=== PATIENT | female | born 1965 | race Two or more races ===

== ENCOUNTER → 2025-10-23 | Outpatient (CLI) | payer MEDICAID, SELFPAY ==
[2025-10-22 14:45] LABS: Basophils # (Auto) 0.1 Thou/mm3 (0.0-0.2); Basophils % (Auto) 0 % (0-2.5); Eosinophils # (Auto) 0.2 Thou/mm3 (0.0-0.5); Eosinophils % (Auto) 2 % (0-10); Hematocrit 41.2 % (36.0-46.0); Hemoglobin 13.1 g/dL (12.0-16.0); Immature Granulocytes Auto 0.04 Thou/mm3 (0.00-0.00); Lymphocytes # (Auto) 3.6 Thou/mm3 (1.0-4.8); Lymphocytes % (Auto) 31 % (10-50); Mean Corpuscular HGB Conc 31.8 g/dl (31.0-37.0); Mean Corpuscular Hemoglobin 29.8 pg (25.0-35.0); Mean Corpuscular Volume 94 fL (80-100); Monocytes # (Auto) 0.8 Thou/mm3 (0.0-0.8); Monocytes % (Auto) 7 % (0-12); Neutrophils # (Auto) 6.9 Thou/mm3 (1.8-7.7); Neutrophils % (Auto) 60 % (37-80); Nucleated Red Blood Cell # 0.00 Thou/mm3 (0.00-0.00); Nucleated Red Blood Cell % 0 /100 WBC (0); Platelet Count 287 Thou/mm3 (140-440); RDW Standard Deviation 49.3 fL (36.4-46.3); Red Blood Count 4.39 Miln/mm3 (4.00-5.20); White Blood Count 11.6 Thou/mm3 (3.6-11.0)
[2025-10-22 15:02] LABS: INR 1.0 (0.9-1.3); Partial Thromboplastin Time 30.5 Seconds (22.0-36.0); Prothrombin Time 10.2 Seconds (9.0-12.2)
--- NOTE | 2025-10-23 09:00 | XR_ITS ---
EXAM: Ultrasound-guided right thyroid biopsy INDICATION: Nodule. DATE: 10/23/2025, 9:54 a.m. PROCEDURE: After discussion of risks and benefits informed consent was obtained. Patient was brought to the ultrasound suite and placed supine on the exam table. Preliminary ultrasound evaluation again demonstrated a heterogeneous right thyroid nodule. This was targeted for fine-needle aspiration. The overlying skin was cleaned and draped in normal sterile surgical fashion. 10 cc of 1% lidocaine was used for local anesthesia. Using ultrasound guidance 25-gauge needle was sequentially advanced into the targeted nodule. Multiple 25-gauge fine-needle aspirates were obtained, placed in solution and sent to the lab for analysis. Needle was withdrawn. Hemostasis was achieved. The access site was covered with a sterile dressing. There were no immediate complications. IMPRESSION: Successful ultrasound-guided right thyroid nodule fine needle aspiration as above.
--- NOTE | 2025-10-23 09:00 | XR_ITS ---
EXAMINATION: Thyroid sonography complete Date and time: October 23, 2025, 0948 hours INDICATIONS: History of thyroid nodules, preop thyroid biopsy today. TECHNIQUE AND FINDINGS: Sonographic images prostate lobes Right thyroid 5.5 cm Mid pole nodule 11 x 4 mm Lower pole nodule 14 x 9 mm Left thyroid 5.5 cm Midpole nodule 8 x 6 mm Mid pole cyst 5 x 5 mm IMPRESSION: Thyroid nodules as above
== END | disposition home or self-care (01) ==
LOC: SIRX 08:37
PROVIDERS: Radiology Diagnostic Radiology; PCP Physician Assistant; Referring Provider Physician Assistant; Visit Provider Physician Assistant
DX: E04.2 Nontoxic multinodular goiter (principal)
CPT/HCPCS: 10005; 36415; 76536; 85025; 85610; 85730